=== PATIENT | male | born 1965 | race American Indian/Alaskan Native ===

== ENCOUNTER 2018-09-12 18:57 | Emergency (ER) | payer OTHER ==
[2018-09-12 20:02] VITALS: BP 166/89
--- NOTE | 2018-09-12 20:05 | Emergency Department Report ---
Blank Doc - Documentation Documentation: 53 y/o male c/o back pain after lifting heavy object. Pain Worst with cough, s neezing or certain movements. [place] for pain management. PMH none.
[2018-09-12] MEDS ORDERED: IBUPROFEN PO ONE ×2 (20:06→20:07)
--- NOTE | 2018-09-12 21:05 | XRay Report ---
PROCEDURE: XR SPINE THORACIC 2V TECHNIQUE: AP and lateral views of the thoracic spine was obtained. HISTORY: middle back pain COMPARISONS: None FINDINGS: No fracture or subluxation is visualized. Mild degenerative changes visualized lower thoracic spine w ith mild disc space narrowing and small marginal osteophytes. Bone density appears normal. No other a bnormalities are seen. IMPRESSION: Mild degenerative disc disease. No acute abnormalities are identified.. This document is electronically signed by Isaias Tripathi MD., Sep 12 2018 09:03:40 PM ET
[2018-09-12] MEDS ORDERED: TORADOL IM ONE (22:34)
[2018-09-12] MEDS ORDERED: DELTASONE PO ONE (22:34)
--- NOTE | 2018-09-12 22:45 | Emergency Department Report ---
ED Back Pain/Injury HPI - General Chief Complaint: Back Pain/Injury Stated Complaint: BACK PAIN Time Seen by Provider: 09/12/18 22:12 Source: patient Limitations: No Limitations - History of Present Illness Initial Comments: This is a 53-year-old male nontoxic, well nourished in appearance, no acute signs of distress presents to the ED with c/o of acute on chronic mid back pain. Patient stated that the past 2 days he was moving and developed this pain. Patient stated that he was heavy lifting at work prior to symptoms of twisting Patient denies any radiation of pain. Patient denies any trauma. Denies any bladder or bowel instability. Patient denies any urinary symptoms. Denies any fever, chills, nausea, vomiting, headache, stiff neck, chest pain or shortness of breath. Patient denies any numbness or tingling. Denies any allergies. Denies significant past medical history. MD Complaint: back pain -: days(s) (2) Similar Symptoms Previously: No Place: work Radiation: none Severity: mild Severity scale (0 -10): 8 Quality: aching Consistency: intermittent Improves With: immobilization, sitting upright Worsens With: movement, walking Context: while lifting, turning/twisting Associated Symptoms: denies other symptoms. denies: confusion, weakness, chest pain, numbness, difficulty walking, cough, difficulty urinating, diaphoresis, incontinence, fever/chills, constipation, headaches, abdominal pain, loss of appetite, malaise, nausea/vomiting, rash, seizure, shortness of breath, syncope - Related Data Previous Rx's Medication Instructions Recorded Last Taken Type Cyclobenzaprine [Flexeril] 10 mg PO QHS PRN #10 tablet 09/12/18 Unknown Rx Ibuprofen [Motrin] 600 mg PO Q8H PRN #20 tablet 09/12/18 Unknown Rx Allergies Allergy/AdvReac Type Severity Reaction Status Date / Time No Known Allergies Allergy Unverified 09/12/18 18:59 ED Review of Systems ROS: Stated complaint: BACK PAIN Other details as noted in HPI Constitutional: denies: chills, fever Eyes: denies: eye pain, eye discharge, vision change ENT: denies: ear pain, throat pain Respiratory: denies: cough, shortness of breath, wheezing Cardiovascular: denies: chest pain, palpitations Endocrine: no symptoms reported Gastrointestinal: denies: abdominal pain, nausea, diarrhea Genitourinary: denies: urgency, dysuria Musculoskeletal: back pain. denies: joint swelling, arthralgia Skin: denies: rash, lesions Neurological: denies: headache, weakness, paresthesias Psychiatric: denies: anxiety, depression Hematological/Lymphatic: denies: easy bleeding, easy bruising ED Past Medical Hx - Past Medical History Previous Medical History?: No - Surgical History Past Surgical History?: No - Social History Smoking Status: Current Every Day Smoker Substance Use Type: Alcohol - Medications Home Medications: Home Medications Medication Instructions Recorded Confirmed Last Taken Type Cyclobenzaprine [Flexeril] 10 mg PO QHS PRN #10 tablet 09/12/18 Unknown Rx Ibuprofen [Motrin] 600 mg PO Q8H PRN #20 tablet 09/12/18 Unknown Rx ED Physical Exam - General Limitations: No Limitations General appearance: alert, in no apparent distress - Head Head exam: Present: atraumatic, normocephalic - Eye Eye exam: Present: normal appearance - Neck Neck exam: Present: normal inspection, full ROM. Absent: tenderness, meningismus, lymphadenopathy - Respiratory Respiratory exam: Present: normal lung sounds bilaterally. Absent: respiratory distress, wheezes, rales, rhonchi, stridor, chest wall tenderness, accessory muscle use, decreased breath sounds, prolonged expiratory - GI/Abdominal GI/Abdominal exam: Present: soft, normal bowel sounds. Absent: distended, tenderness, guarding, rebound, rigid, diminished bowel sounds - Rectal Rectal exam: Present: deferred - Extremities Exam Extremities exam: Present: normal inspection, full ROM - Back Exam Back exam: Present: normal inspection, full ROM, paraspinal tenderness (thoracic paraspinal). Absent: tenderness, CVA tenderness (R), CVA tenderness (L), muscle spasm, vertebral tenderness, rash noted - Expanded Back Exam Expanded Back exam: Absent: saddle anesthesia Back exam: Negative Straight Leg Raising: Left, Right - Neurological Exam Neurological exam: Present: alert, oriented X3, normal gait - Psychiatric Psychiatric exam: Present: normal affect, normal mood - Skin Skin exam: Present: warm, dry, intact, normal color. Absent: rash ED Course Vital Signs 09/12/18 09/12/18 20:01 20:06 Temperature 98.7 F Pulse Rate 58 L Respiratory 18 18 Rate Blood Pressure 166/89 O2 Sat by Pulse 98 Oximetry - Reevaluation(s) Reevaluation #1: 09/12/18 23:02 Patient is speaking in full sentences with no signs of distress noted. ED Medical Decision Making - Medical Decision Making This is a 53-year-old male that presents with mid-back strain. Patient is stable was examined by me. There is no spinal tenderness. There is no cauda equina syndrome during examination. No bladder or bowel instability. Patient received Toradol 60 mg IM and prednisone in the ED which preceded his symptoms has resolved and subsided. Patient is discharged with muscle relaxant and Motrin. Patient was instructed not to operate any machinery while taking muscle relaxant as they cause her drowsiness. Patient was referred to Follow-up with a primary care doctor in 3-5 days or if symptoms worsen and continue return to emergency room as soon as possible. At time of discharge, the patient does not seem toxic or ill in appearance. No acute signs of distress noted. Patient agrees to discharge treatment plan of care. No further questions noted by the patient. This chart is dictated with using [employer] Critical care attestation.: If time is entered above; I have spent that time in minutes in the direct care of this critically ill patient, excluding procedure time. ED Disposition Clinical Impression: Back strain Qualifiers: Encounter type: initial encounter Qualified Code(s): S39.012A - Strain of muscle, fascia and tendon of lower back, initial encounter Disposition: - TO HOME OR SELFCARE Is pt being admited?: No Does the pt Need Aspirin: No Condition: Stable Instructions: Bromocriptine (By mouth), Cyclobenzaprine (By mouth) Additional Instructions: Follow-up with your primary care doctor in 3-5 days or if symptoms worsen such as bladder or bowel stability, chest pain, short of breath, numbness or tingling sensation in extremities, headache, dizziness, visual changes, nausea vomiting, or abdominal pain, return back to emergency room as was possible. Take ibuprofen and Flexeril as prescribed. Do not operate heavy machinery while taking Flexeril due to sedation Prescriptions: Cyclobenzaprine [Flexeril] 10 mg PO QHS PRN #10 tablet PRN Reason: Muscle Spasm Ibuprofen [Motrin] 600 mg PO Q8H PRN #20 tablet PRN Reason: Pain Referrals: [facility], MD [Primary Care Provider] - 3-5 Days PRIMARY CAREMD [Referring] - 3-5 Days ROHINI ROWE MD [Staff Physician] - 3-5 Days [facility] [Outside] - 3-5 Days [facility] [Outside] - 3-5 Days Forms: Work/School Release Form(ED)
== END 2018-09-12 23:05 | disposition home or self-care (01) ==
LOC: ED 18:57
DX: S39.012A Strain of muscle, fascia and tendon of lower back, initial encounter (principal); F17.200 Nicotine dependence, unspecified, uncomplicated; X58.XXXA Exposure to other specified factors, initial encounter; Y93.89 Activity, other specified; Y92.89 Other specified places as the place of occurrence of the external cause; Y99.8 Other external cause status
CPT/HCPCS: 72070; 96372; 99283; J1885; J7512

== ENCOUNTER 2019-04-03 08:51 | Emergency (ER) | payer SELFPAY ==
[2019-04-03 09:01] VITALS: BP 137/91
[2019-04-03] MEDS ORDERED: MORPHINE 4 MG/1 ML INJ IV ONE (09:21)
[2019-04-03] MEDS ORDERED: SODIUM CHLORIDE 0.9% 1000 ML 1,000 ML IV ONE (09:21)
[2019-04-03] MEDS ORDERED: CLINDAMYCIN 600 MG/50 mL 600 MG/50 ML BAG IV ONE (09:21)
[2019-04-03 09:37] LABS: Basophils % (Auto) 0.3 % (0.0-1.8); Eosinophils # (Auto) 0.1 K/mm3 (0.0-0.4); Eosinophils % (Auto) 0.8 % (0.0-4.3); Hematocrit 46.3 % (35.5-45.6); Hemoglobin 15.2 gm/dl (11.8-15.2); Lymphocytes # (Auto) 2.6 K/mm3 (1.2-5.4); Lymphocytes % (Auto) 22.4 % (13.4-35.0); Mean Corpuscular HGB Conc 33 % (32-34); Mean Corpuscular Volume 94 fl (84-94); Monocytes # (Auto) 0.9 K/mm3 (0.0-0.8); Monocytes % (Auto) 8.1 % (0.0-7.3); Platelet Count 267 K/mm3 (140-440); Red Blood Count 4.91 M/mm3 (3.65-5.03)
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
[2019-04-03 09:56] LABS: BUN/Creatinine Ratio 9; Blood Urea Nitrogen 9 mg/dL (9-20); Calcium 9.3 mg/dL (8.4-10.2); Hemolysis Index 6
[2019-04-03] MEDS ORDERED: ONDANSETRON 4 MG/2 ML INJ ONE (10:25)
[2019-04-03] MEDS ORDERED: ONDANSETRON 4 MG/2 ML INJ IV ONE (10:25)
--- NOTE | 2019-04-03 12:14 | Cat Scan Report ---
CT pelvis w con INDICATION: perianal pain and swelling r/o abscess. TECHNIQUE: All CT scans at this location are performed using the following dose modulation technique: Automated exposure control. Helical slices were obtained through the pelvis. 100 cc of Omnipaque 300 is adminis tered. COMPARISON: None available. FINDINGS: Pelvis: There is a 2 cm perianal, subcutaneous abscess along the medial aspect of the left buttock lo cated just posterior to the anus. No other fluid collections are seen. The imaged portion of the bowel is unremarkable. There is no free air. There are no abnormal fluid co llections within the abdominal pelvic cavity. On review of bone windows, no acute osseous abnormalities are seen. There are degenerative changes no arsen in the hips and in the lower lumbar spine IMPRESSION: 1. There is a 2 cm subcutaneous, perianal abscess along the medial aspect of the left buttock. Signer Name: Timmy Herman MD Signed: 04/03/2019 12:10 PM Workstation Name: [id number]
== END 2019-04-03 12:54 | disposition home or self-care (01) ==
LOC: ED 08:51
DX: K61.0 Anal abscess (principal); F17.200 Nicotine dependence, unspecified, uncomplicated; Z98.890 Other specified postprocedural states; Z79.1 Long term (current) use of non-steroidal anti-inflammatories (NSAID); Z79.899 Other long term (current) drug therapy
CPT/HCPCS: 36415; 46050; 72193; 80048; 85025; 96365; 96375; 99284; J2270; J2405; J7030; Q9966

== ENCOUNTER 2019-04-06 12:01 | Emergency (ER) | payer SELFPAY ==
[2019-04-06 12:06] VITALS: BP 118/71
--- NOTE | 2019-04-06 12:06 | Event Note ---
ED Screening Note ED Screening Note: pt presents for packing removal from the gluteal cleft no fever no pain This initial assessment/diagnostic orders/clinical plan/treatment(s) is/are subject to change based on patients health status, clinical progression and re- assessment by fellow clinical providers in the ED. Further treatment and workup at subsequent clinical providers discretion. Patient/guardian urged not to elope from the ED as their condition may be serious if not clinically assessed and managed.
== END 2019-04-06 13:05 | disposition left against medical advice (07) ==
LOC: ED 12:01
DX: Z53.21 Procedure and treatment not carried out due to patient leaving prior to being seen by health care provider (principal)

== ENCOUNTER 2019-05-16 22:31 | Emergency (ER) | payer SELFPAY ==
[2019-05-16 23:14] VITALS: BP 123/85
--- NOTE | 2019-05-17 01:01 | Cat Scan Report ---
Examination: CT of the head without contrast Clinical information: Trauma. Fall. Comparison: None Technical: Multiple axial CT images of the head were obtained without intravenous contrast. Sagittal and coronal reformats were obtained. All CTs at this facility utilize dose reduction techniques inc luding automated exposure control, iterative reconstruction and weight based dosing when appropriate to reduce patient radiation dose to as low as reasonable achievable. Findings: There is no CT evidence of acute intracranial hemorrhage or large territorial infarct. The ventricular system is normal in size. No extra-axial fluid collections are identified. Evaluation of bony structures demonstrates no evidence of acute bony abnormality. Visualized paranasa l sinuses and mastoid air cells are clear. Impression: 1. No CT evidence of acute intracranial process. Signer Name: Roz Rendon MD Signed: 05/17/2019 12:56 AM Workstation Name: [id number]
== END 2019-05-17 | disposition left against medical advice (07) ==
LOC: ED 22:31
DX: R51 Headache (principal); Z53.21 Procedure and treatment not carried out due to patient leaving prior to being seen by health care provider
CPT/HCPCS: 70450